=== PATIENT | female | born 1970 | race African-American/Black ===

== ENCOUNTER 2016-03-29 00:18 | Emergency (ER) ==
[2016-03-29 00:28] VITALS: BP 114/68
[2016-03-29] MEDS ORDERED: ZITHROMAX PO ONE (01:14)
--- NOTE | 2016-03-29 01:20 | PROVIDER DOCUMENTATION ---
HPI-EENT General - General Chief Complaint: Sore Throat Stated Complaint: FACIAL PAIN Time Seen by Provider: 03/29/16 01:05 Source: patient Allergies/Adverse Reactions: Patient Allergies Allergy/AdvReac Type Severity Reaction Status Date / Time Penicillins Allergy HIVES Verified 03/29/16 00:28 Home Medications: Acetaminophen with Codeine [Tylenol with Codeine #3] 1 each PO Q4H PRN PRN 08/01 Amlodipine Besylate [Norvasc] 10 mg PO DAILY 08/02/15 Lisinopril/Hydrochlorothiazide [Lisinopril-Hctz 20-12.5 mg Tab] 1 each PO DAILY 08/02/15 Lovastatin 20 mg PO QHS 08/02/15 Mycophenolate Mofetil 500 mg PO BID 08/02/15 Pantoprazole [Protonix] 40 mg PO DAILY@0700 08/02/15 Prednisone 10 mg PO DIRECTED 08/02/15 Gabapentin 300 mg PO BID 12/24/15 Hydroxychloroquine [Plaquenil] 200 mg PO BID 12/24/15 Hydroxyzine HCl 25 mg PO HS 12/24/15 Tramadol [Ultram] 50 mg PO TID 12/24/15 - History of Present Illness-EENT General Nature of Presenting Problem: 45 y/o BF c/o R sided throat pain x 1 day. Pt states no fever/chills, cough, congestion. States pain getting worse and has hx of SLE and is concerned about infection. Denies any other sxs, including close sick contacts. Review of Systems - Adult - REVIEW OF SYSTEMS - ADULT Constitutional: reports: no symptoms reported. denies: chills, fever Eyes: reports: no symptoms reported. denies: blurred vision, double vision Ears, Nose, Mouth & Throat: reports: see HPI, throat pain. denies: ear pain, nose pain Cardiovascular: reports: no symptoms reported. denies: chest pain, palpitations Respiratory: reports: no symptoms reported. denies: cough, dyspnea on exertion , shortness of breath Gastrointestinal: reports: no symptoms reported. denies: abdominal pain, nausea , vomiting Genitourinary: reports: no symptoms reported. denies: dysuria, frequency Musculoskeletal: reports: no symptoms reported. denies: joint pain, joint swelling Integumentary: reports: no symptoms reported. denies: nail changes, rash Neurological: reports: no symptoms reported. denies: numbness, paresthesia Psychiatric: reports: no symptoms reported Endocrine: reports: no symptoms reported. denies: cold intolerance, heat intolerance Hematologic/Lymphatic: reports: no symptoms reported. denies: easy bruising, prolonged bleeding Allergic/Immunologic: reports: no symptoms reported All Other Systems: Reviewed and Negative Past History - Adult - PAST MEDICAL HISTORY-ADULT Review of Records: reports: Nursing Assessment Review, Medications Reviewed Major Childhood Illnesses: reports: denies history Cardiovascular: reports: denies history Respiratory: reports: denies history Gastrointestinal: reports: denies history Obstetrical/Gynecological: reports: denies history Genitourinary: reports: denies history Musculoskeletal: reports: denies history Neurological: reports: denies history Endocrine/Immune: reports: denies history Other Conditions: reports: denies history - PRIOR SURGERIES/PROCEDURES Surgical/Procedure History: reports: cholecystectomy, hysterectomy - IMMUNIZATION STATUS Childhood Immunizations: See Nurse Assessment Flu Vaccine: See Nurse Assessment - FAMILY HISTORY Family History: reviewed, not pertinent Physical Exam- EENT - Physical Exam EENT Initial Vital Signs Reviewed: Yes General Appearance: alert, mild distress Eye Exam: bilateral eye: normal inspection Ear Exam: bilateral ear: auricle normal, canal normal, TM normal Nasal Exam: normal inspection. negative: sinus tenderness Throat Exam: negative: pharynx normal (erythema), tonsillar exudate Neck: supple, normal inspection, lymphadenopathy (mild, ant. cervical) Respiratory: no respiratory distress Lymphatic: cervical node tenderness Extremity: normal gait Integumentary: normal color, normal turgor, warm/dry Neurologic: negative: aphasia Psych/Mental Status: AL, normal mood/affect, normal thought content, normal thought process, oriented x 3 Progress - PLAN OF CARE/RESULTS Progress/Plan/Lab Results: Laboratory Tests 03/29/16 03/29/16 00:30 00:30 Influenza A (Rapid) NEGATIVE Influenza B (Rapid) NEGATIVE Group A Strep Rapid NEGATIVE Orders Category Date Time Status DIRECT STREP PL Stat Lab 03/29/16 00:[address] Stat Lab 03/29/16 00:30 Completed Azithromycin [Zithromax] Med 03/29/16 01:14 Discontinued 500 mg PO NOW ONE Vital Signs Temp Pulse Resp BP Pulse Ox 03/29/16 00:24 98.6 F 96 H 18 114/68 100 Penicillins Allergy (Verified 03/29/16 00:28) HIVES Acetaminophen with Codeine [Tylenol with Codeine #3] 1 each PO Q4H PRN PRN 08/01 Amlodipine Besylate [Norvasc] 10 mg PO DAILY 08/02/15 Lisinopril/Hydrochlorothiazide [Lisinopril-Hctz 20-12.5 mg Tab] 1 each PO DAILY 08/02/15 Lovastatin 20 mg PO QHS 08/02/15 Mycophenolate Mofetil 500 mg PO BID 08/02/15 Pantoprazole [Protonix] 40 mg PO DAILY@0700 08/02/15 Prednisone 10 mg PO DIRECTED 08/02/15 Butalbital/APAP/Caffeine [Fioricet] 1 each PO TID #30 tablet 12/24/15 Gabapentin 300 mg PO BID 12/24/15 Hydroxychloroquine [Plaquenil] 200 mg PO BID 12/24/15 Hydroxyzine HCl 25 mg PO HS 12/24/15 Tramadol [Ultram] 50 mg PO TID 12/24/15 Azithromycin [Zithromax Tri-Chemo] 500 mg PO DAILY #5 tablet 03/29/16 Laboratory 03/29/16 03/29/16 00:30 00:30 Influenza A (Rapid) NEGATIVE Influenza B (Rapid) NEGATIVE Group A Strep Rapid NEGATIVE Discussed results and f/u with pt. Departure - Departure Time of Disposition Order: 01:15 DIAGNOSIS: Pharyngitis Qualifiers: Pharyngitis/tonsillitis etiology: unspecified etiology Qualified Code(s): J02.9 - Acute pharyngitis, unspecified Disposition: HOME 01 Certified Medical Emergency: Emergent Condition: Stable Additional Instructions: Take medications as directed. Follow up with PCP as needed. Return if symptoms get worse. Tylenol as needed for pain. ED Follow Up Instructions: You have been treated by a care provider in the Emergency Department. These instructions are being provided to you so you can have an understanding of how to care for yourself upon discharge. Upon discharge from the Emergency Department, you are responsible for making arrangements for follow-up care by a physician of your choice. Take all prescribed medications as directed. Return to the Emergency Department immediately for any new or worsening symptoms. You may call the Physician Referral phone number at [phone] to obtain a list of Physicians who are taking new patients. Prescriptions: Azithromycin [Zithromax Tri-Chemo] 500 mg PO DAILY #5 tablet Referrals: Shakeel Conway MD [Primary Care Provider] - Forms: Return to School/Parent Work Instructions: Azithromycin tablets, Pharyngitis, [id number] Attestation - Physician/ Mid-level Attestation Patient care was provided by Mid-level provider (HOUSING INSTALLER/PA):: Yes Mid-level provider:: Moni Vasquez Mid-level documentation review:: The Mid-level provider documentation, treatment plan and medical decision making was reviewed by the physician who agrees with all treatment and medical decision making by the MLP.
== END 2016-03-29 01:24 | disposition home or self-care (01) ==
LOC: P.ED 00:18
DX: J02.9 Acute pharyngitis, unspecified (principal); R59.0 Localized enlarged lymph nodes; Z79.899 Other long term (current) drug therapy
CPT/HCPCS: 87081; 87430; 87804; 99283